=== PATIENT | female | born 2005 | race Caucasian/White ===

== ENCOUNTER 2024-07-02 10:29 | Emergency (ER) | payer OTHER, SELFPAY ==
[2024-07-02 10:37] VITALS: BP 129/99
[2024-07-02 10:57] LABS: % Basophils 0.7 % (0-2); % Eosinophils 0.1 % (0-6); % Immature Granulocytes 0.4 % (0-0.5); % Lymphocytes 10.5 % (20.5-51.1); % Monocytes 4.6 % (1.7-9.3); % Neutrophils 83.7 % (42.2-75.2); Absolute Basophils 0.1 10^3/uL (0-0.2); Absolute Immature Granulocytes 0.1 10^3/uL (0-0.05); Absolute Lymphocytes 1.3 10^3/uL (1.2-3.4); Absolute Monocytes 0.6 10^3/uL (0.1-0.6); Absolute Neutrophils 10.2 10^3/uL (1.4-6.5); Hemoglobin 11.4 g/dL (12.0-16.0); Mean Corp Hgb Conc. 34.5 g/dL (33.0-37.0); Mean Corpuscular Hgb 29.8 pg (27.0-31.0); Mean Corpuscular Volume 86.2 fL (81.0-99.0); Mean Platelet Volume 8.6 fL (7.4-10.4); Nucleated Red Blood Cells % 0 %; Platelet Count 329 10^3/uL (130-400); Red Blood Cell Count 3.83 10^6/uL (4.20-5.40); Red Cell Dist. Width 13.8 % (11.5-14.5); White Blood Cell Count 12.2 10^3/uL (4.8-10.8)
[2024-07-02 11:04] LABS: HCG, Serum Qualitative Screen Negative
[2024-07-02 11:42] LABS: ALT (SGPT) 14 U/L (0-35); AST (SGOT) 18 U/L (14-36); Albumin 4.5 g/dl (3.5-5.0); Alkaline Phosphatase 54 U/L (38-126); Blood Urea Nitrogen 6 mg/dl (7-17); Calcium 9.1 mg/dl (8.4-10.2); Carbon Dioxide 21 mmol/L (22-30); Chloride 106 mmol/L (98-107); Glucose 98 mg/dl (70-99); Lipase 53 U/L (23-300); Potassium 3.6 mmol/L (3.5-5.1); Sodium 140 mmol/L (135-145); Total Bilirubin 0.7 mg/dl (0.2-1.3); Total Protein 7.1 g/dl (6.3-8.2); eGFR > 60.00
--- NOTE | 2024-07-02 13:06 | ED.GENMED ---
History of Present Illness
<Candice Velez MD, Resident - Last Filed: 07/03/24 06:11>
General
Chief Complaint: Abdominal Symptoms
Time Seen by Provider: 07/02/24 12:10
History of Present Illness
History of Present Illness:
This is a 18-year-old female with past medical history of endometriosis who presents to the ED complaining of abdominal pain that started yesterday. Patient reports sharp pain that was an 8 out of 10 when it started. In addition she admits nausea,
but has had no episodes of vomiting. Nothing makes the pain better, moving around makes it worse. Today, she went to the urgent care for evaluation but was sent to the ED for further evaluation and imaging. Patient denies diarrhea and
constipation, reports last bowel movement was yesterday. She admits history of endometriosis s/p laparoscopy. She reports vaginal bleeding ongoing for the past 1 week. She has not had regular periods in 6 months. She uses control patch.
She reports urinary frequency, denies urgency and pain with urination. Pertinent to her history, she was recently diagnosed with a tooth infection and started on amoxicillin on Tuesday. She denies fever, chills.
Past History
<Candice Velez MD, Resident - Last Filed: 07/03/24 06:11>
Past History
ED Past Medical History: Other (Endometriosis)
ED Past Surgical History: Gynecological (Laparoscopy)
Social History
Tobacco: Vaping
Alcohol: None
Drug: None
Review of Systems
<Candice Velez MD, Resident - Last Filed: 07/03/24 06:11>
Review of Systems
Constitutional: Reports no symptoms; Denies fever or chills
Respiratory: Reports no symptoms
ABD/GI: Reports abdominal pain and nausea
Phy Exam
<Candice Velez MD, Resident - Last Filed: 07/03/24 06:11>
General Physical Exam
General Presentation: well appearing and mild distress
General Skin: warm
General Mental: alert
Cardiovascular Exam
Cardiovascular Exam: regular rate/rhythm and no edema
Pulmonary Exam
Pulmonary Exam: lungs clear and no respiratory distress
Gastrointestinal Exam
Gastrointestinal Exam: normal bowel sounds, soft, non distended and tender (Generalized tenderness in upper abdominal region. )
Neurological Exam
Neurological Exam: alert and oriented x3
Psychiatric Exam
Psychiatric Exam: normal mood/affect
Course
<Candice Velez MD, Resident - Last Filed: 07/03/24 06:11>
Orders/Labs/Results
Orders:
Orders
07/02/24 10:42
Test Result ONCE
07/02/24 10:46
Complete Blood Count/With Diff Urgent
Comprehensive Metabolic Panel Urgent
HCG, Serum Qualitative Screen Urgent
Comment: Notify provider if positive test present
Lipase Urgent
07/02/24 13:03
CT Abd/pel W Iv And Oral Contr Urgent
Comment:
Reason For Exam: pain diffuse abd pain
0.9% Sodium Chloride 1000 ml [Nss] 1,000 ml IV BOLUS
Iohexol [Omnipaque] See Protocol PO NOW STA
Ketorolac [Toradol] 15 mg IV NOW STA
Ondansetron Injectable [Zofran] 4 mg IV NOW STA
07/02/24 13:26
US Pelvis Only (non-obstetric) Urgent
Comment:
Reason For Exam: L>R adnexal tenderness
07/02/24 15:39
Urinalysis Reflex To Culture Urgent
Date Specimen was Collected: 07/02/24
Time Specimen was Collected: 15:38
Urine Microscopic Urgent
Date Specimen was Collected: 07/02/24
Time Specimen was Collected: 15:38
Chlamydia/GC by PCR Urgent
NILA Source: Urine
Specimen Description:
Source:: URINE
Date Specimen was Collected: 07/02/24
Time Specimen was Collected: 15:38
07/02/24 15:41
Ketorolac [Toradol] 15 mg IV NOW STA
07/02/24 16:35
Famotidine [Pepcid] 20 mg IV NOW STA
07/02/24 18:37
Hepatitis A IgM Antibody Urgent
Hepatitis B Core Ab, IgM Urgent
Hepatitis B Surface Antibody Urgent
Hepatitis B Surface Antigen Urgent
Hepatitis C Antibody Urgent
Abnormal Lab Results
07/02/24 07/02/24
10:46 15:39
WBC 12.2 H 10^3/uL
(4.8-10.8)
RBC 3.83 L 10^6/uL
(4.20-5.40)
Hgb 11.4 L g/dL
(12.0-16.0)
Hct 33.0 L %
(37.0-47.0)
Abs Immat Gran (auto) 0.1 H 10^3/uL
(0-0.05)
Absolute Neuts (auto) 10.2 H 10^3/uL
(1.4-6.5)
Neutrophils % 83.7 H %
(42.2-75.2)
Lymphocytes % 10.5 L %
(20.5-51.1)
Carbon Dioxide 21 L mmol/L
(22-30)
BUN 6 L mg/dl
(7-17)
Urine Ketones 3+ A
(Negative)
Ur Occult Blood Reflex 1+ A
(Negative)
Urine RBC 3-6 A /HPF
(0-2)
Urine Bacteria Few A
(Negative)
Urine Albumin (Reflex) 2+ A
(Neg - Trace)
07/02/24 10:46
07/02/24 10:46
Vital Signs
Initial and Last Documented VS:
Initial Vital Signs
Temp Pulse Resp BP Pulse Ox
98.4 F 98 16 129/99 98
07/02/24 10:37 07/02/24 10:37 07/02/24 10:37 07/02/24 10:37 07/02/24 10:37
Last Documented Vital Signs
Temp Pulse Resp BP Pulse Ox
98.5 F 68 18 112/79 99
07/02/24 12:53 07/02/24 18:02 07/02/24 18:02 07/02/24 18:02 07/02/24 18:02
<Efren Trujillo, DO - Last Filed: 07/02/24 20:01>
Orders/Labs/Results
Orders:
Orders
07/02/24 10:42
Test Result ONCE
07/02/24 10:46
Complete Blood Count/With Diff Urgent
Comprehensive Metabolic Panel Urgent
HCG, Serum Qualitative Screen Urgent
Comment: Notify provider if positive test present
Lipase Urgent
07/02/24 13:03
CT Abd/pel W Iv And Oral Contr Urgent
Comment:
Reason For Exam: pain diffuse abd pain
0.9% Sodium Chloride 1000 ml [Nss] 1,000 ml IV BOLUS
Iohexol [Omnipaque] See Protocol PO NOW STA
Ketorolac [Toradol] 15 mg IV NOW STA
Ondansetron Injectable [Zofran] 4 mg IV NOW STA
07/02/24 13:26
US Pelvis Only (non-obstetric) Urgent
Comment:
Reason For Exam: L>R adnexal tenderness
07/02/24 15:39
Urinalysis Reflex To Culture Urgent
Date Specimen was Collected: 07/02/24
Time Specimen was Collected: 15:38
Urine Microscopic Urgent
Date Specimen was Collected: 07/02/24
Time Specimen was Collected: 15:38
Chlamydia/GC by PCR Urgent
NILA Source: Urine
Specimen Description:
Source:: URINE
Date Specimen was Collected: 07/02/24
Time Specimen was Collected: 15:38
07/02/24 15:41
Ketorolac [Toradol] 15 mg IV NOW STA
07/02/24 16:35
Famotidine [Pepcid] 20 mg IV NOW STA
07/02/24 18:37
Hepatitis A IgM Antibody Urgent
Hepatitis B Core Ab, IgM Urgent
Hepatitis B Surface Antibody Urgent
Hepatitis B Surface Antigen Urgent
Hepatitis C Antibody Urgent
Abnormal Lab Results
07/02/24 07/02/24
10:46 15:39
WBC 12.2 H 10^3/uL
(4.8-10.8)
RBC 3.83 L 10^6/uL
(4.20-5.40)
Hgb 11.4 L g/dL
(12.0-16.0)
Hct 33.0 L %
(37.0-47.0)
Abs Immat Gran (auto) 0.1 H 10^3/uL
(0-0.05)
Absolute Neuts (auto) 10.2 H 10^3/uL
(1.4-6.5)
Neutrophils % 83.7 H %
(42.2-75.2)
Lymphocytes % 10.5 L %
(20.5-51.1)
Carbon Dioxide 21 L mmol/L
(22-30)
BUN 6 L mg/dl
(7-17)
Urine Ketones 3+ A
(Negative)
Ur Occult Blood Reflex 1+ A
(Negative)
Urine RBC 3-6 A /HPF
(0-2)
Urine Bacteria Few A
(Negative)
Urine Albumin (Reflex) 2+ A
(Neg - Trace)
07/02/24 10:46
07/02/24 10:46
Vital Signs
Initial and Last Documented VS:
Initial Vital Signs
Temp Pulse Resp BP Pulse Ox
98.4 F 98 16 129/99 98
07/02/24 10:37 07/02/24 10:37 07/02/24 10:37 07/02/24 10:37 07/02/24 10:37
Last Documented Vital Signs
Temp Pulse Resp BP Pulse Ox
98.5 F 68 18 112/79 99
07/02/24 12:53 07/02/24 18:02 07/02/24 18:02 07/02/24 18:02 07/02/24 18:02
<Candice Velez MD, Resident - Last Filed: 07/03/24 06:11>
MDM/Problems Addressed
MDM/Problems Addressed:
This is a 18-year-old female who presents to the ED complaining of abdominal pain and nausea. Physical examination with generalized tenderness to the upper abdominal region. Will start patient on pain med, IV fluids, Zofran. will Evaluate with
abdominal CT scan.
<Candice Velez MD, Resident - Last Filed: 07/03/24 06:11>
*Critical Care Note
Total Time (30-74mins, 75-104mins- exclusive of procedures): Not Applicable
<Efren Trujillo, DO - Last Filed: 07/02/24 20:01>
Update Note
Update Note:
3:40 PM: Patient states that she did have initial improvement of pain after Toradol however now the pain is recurring. Will give a second dose of Toradol now. Pelvic ultrasound shows no acute abnormality.
6:10 PM: I discussed case with Dr. Pagan who recommends adding a hepatitis panel however a very low suspicion for hepatitis. Hepatitis panel pending. I have also contacted for an office to arrange close follow-up and I have given her the
contact information for a local automotive diagnostic technician for likely endometriosis. Also recommended PPI at GI recommendation.
8 PM: I informed patient of negative STI testing and negative hepatitis panel testing for acute abnormality. I did inform her of the negative hepatitis B surface antibody though.
ED Attending Note
<Candice Velez MD, Resident - Last Filed: 07/03/24 06:11>
-
Portions of this chart may have been created with voice recognition software.� Occasional wrong word or��sound alike� substitutions may have occurred due to the inherent limitations of voice recognition software.
<Efren Trujillo DO - Last Filed: 07/02/24 20:01>
ED Attending Note
Patient seen and examined by attending physician: Yes
I performed the substantive portion of visit, reviewed & personally made and approve the management plan that is documented in note by myself or CORTNEY.: Yes
ED Attending Note:
The patient also tells me that she has been having chronic vaginal discharge. She also has a history of endometriosis. She doubts STI as she states she has been with the same partner for the past 4 years. Will also ultrasound image the pelvis. I
performed a bimanual exam with [facility] in the room. She does have left greater than right adnexal tenderness with some cervical motion tenderness but no significant discharge. There is no foul-smelling odor.
Discharge Plan
Departure
Patient Disposition: Home (Routine Discharge)
Date of Disposition: 07/02/24
Time of Disposition: 18:27
Patient with high blood pressure during this ER visit?: Yes
Discharge Problem:
Acute epigastric pain
Referrals:
Ermelinda Reynolds MD [Family Provider] -
Kerri Pagan MD [Active] - Next open appointment
Susan Lane DO [Active] - Next open appointment
Activity Restrictions/Additional Instructions:
I recommended 2-week course of [id number] omeprazole. The CAT scan showed questionable signs of hepatitis however your liver numbers were normal. I did speak to the GI doctor on-call, Dr. Pagan who recommends that we obtain a hepatitis
panel. You will be notified only if there is abnormality. I contacted their office to try to get you in soon for an appointment. I have also given the contact information for local automotive diagnostic technician as well. I recommend 3-4 [id number] ibuprofen
(Motrin) every 8 hours with food for a few days in case the pain could be related to endometriosis.. Return here if worse.
Interventions
Interventions:
*Risk Screen - Suicide Last Done: 07/02/24 10:37
*General Assessment Last Done: 07/02/24 12:54
*Neglect/Abuse Screening Last Done: 07/02/24 10:37
*ED- Fall Risk Assessment Last Done: 07/02/24 12:54
*ED COVID-19 Vaccine History Last Done: 07/02/24 12:54
*Nursing Disposition Last Done: 07/02/24 19:13
PI-Vqjcsx-Efbcwmhebr Assessment Last Done: 07/02/24 12:54
Discharge Date and Time
Discharge Date/Time: 07/02/24 19:14
Print Language: FAROESE
[2024-07-02] MEDS: TORADOL 15 MG IV ×2 (13:27→15:44)
[2024-07-02] MEDS: ZOFRAN 4 MG IV (13:27)
[2024-07-02] MEDS: NSS 1000 IV (13:28)
[2024-07-02] MEDS: OMNIPAQUE 50 ML PO (13:28)
[2024-07-02 15:47] LABS: Urine Albumin 2+ (Neg - Trace); Urine Bilirubin Negative (Negative); Urine Character Clear (Clear); Urine Color Yellow; Urine Glucose Negative (Negative); Urine Ketone 3+ (Negative); Urine Leukocyte Negative (Negative); Urine Nitrite Negative (Negative); Urine Occult Blood 1+ (Negative); Urine Specific Gravity 1.025 (<1.030); Urine Urobilinogen 1+ (Neg - 1+)
[2024-07-02 16:04] LABS: Urine Bacteria Few (Negative); Urine Mucus Many; Urine Squamous Cell 16-20 /LPF (Few)
[2024-07-02 16:05] LABS: Urine White Cell 0-2 /HPF (0-5)
[2024-07-02] MEDS: PEPCID 20 MG IV (16:39)
[2024-07-02 18:02] VITALS: BP 112/79
[2024-07-02 19:29] LABS: Hepatitis B Surface Antigen Negative (Negative)
[2024-07-02 19:36] LABS: Hepatitis A IgM Antibody Negative (Negative); Hepatitis B Core Ab, IgM Negative (Negative)
[2024-07-02 19:47] LABS: Hepatitis B Surface Antibody Negative; Hepatitis C Antibody Negative (Negative)
== END 2024-07-02 19:14 | disposition home or self-care (01) ==
LOC: EMR 10:29
PROVIDERS: Emergency Medicine; Student in an Organized Health Care Education/Training Program; EMERGENCY PHYSICIAN Emergency Medicine; FAMILY PHYSICIAN Family Medicine
DX: R10.13 Epigastric pain (principal); R03.0 Elevated blood-pressure reading, without diagnosis of hypertension; N89.8 Other specified noninflammatory disorders of vagina; F17.290 Nicotine dependence, other tobacco product, uncomplicated
CPT/HCPCS: 99285; 96374; 96375 ×2; 96361; 96376; 74177; 76856; 80053; 81003; 81015; 83690; 84703; 85025; 86705; 86706; 86709; 86803; 87340; 87491; 87591; Q9967